=== PATIENT | female | born 1940 | race Caucasian/White ===

== ENCOUNTER 2016-05-30 09:54 | Emergency (ER) | payer MEDICARE ==
[2016-05-30] MEDS ORDERED: Cephalexin CAP* 500 MG PO ONE (11:51)
[2016-05-30] MEDS ORDERED: Sulfamethox/Trimethoprim DS 800/160* TAB PO ONE (11:51)
[2016-05-30] MEDS ORDERED: HYDROcodone/ACETAMIN 5-325 MG* 1 TAB PO ONE (11:51)
[2016-05-30 12:15] VITALS: BP 129/95
--- NOTE | 2016-06-27 10:37 | ED ---
Kennedy York Matthew, scribed for Aj Hyde MD on 05/30/16 at 1136 . Skin Complaint - HPI Summary HPI Summary: A 75 y/o female presents to the ED with erythema over the left hand since this morning, which streaks up the forearm. The pain is rated 8/10 in severity currently. She has had pain for a couple of days without streaking. The patient may have been scratched by a puppy otherwise she has no known cause. She denies fever, itchiness, diaphoresis, and chills. No Hx of diabetes. No recent fall. She took Tramadol this morning without relieve. - History of Current Complaint Chief Complaint: EDExtremityUpper Time Seen by Provider: 05/30/16 11:30 Stated Complaint: ARM PAIN Hx Obtained From: Patient Onset/Duration: Started Hours Ago, Atraumatic, Still Present Skin Exposure Onset/Duration: Hours Ago Timing: Constant Onset Severity: Moderate Current Severity: Moderate Pain Intensity: 8 Pain Scale Used: 0-10 Numeric Skin Location: Arm - left forearm Character: Pain, Redness Aggravating Symptom(s): Touch Alleviating Symptom(s): Nothing Associated Signs & Symptoms: Tenderness, Red Streaks - Allergy/Home Medications Allergies/Adverse Reactions: Allergies Allergy/AdvReac Type Severity Reaction Status Date / Time Amiodarone Allergy Nausea And Verified 05/30/16 11:57 Vomiting Aspirin Allergy GI Upset Verified 05/30/16 11:57 [From Talwin Compound] Latex Allergy Rash Verified 05/30/16 11:57 Pentazocine Allergy GI Upset Verified 05/30/16 11:57 [From Talwin Compound] Sotalol Allergy Nausea Verified 05/30/16 11:57 Zolpidem [From Ambien] Allergy Anxiety Verified 05/30/16 11:57 PMH/Surg Hx/FS Hx/Imm Hx Endocrine/Hematology History: Denies: Hx Diabetes Cardiovascular History: Reports: Hx Hypertension, Hx Pacemaker/ICD Respiratory History: Reports: Hx Chronic Obstructive Pulmonary Disease (COPD) - Surgical History Surgery Procedure, Year, and Place: Right Knee Replacement Infectious Disease History: Denies: Traveled Outside the [place] in Last 30 Days - Family History Known Family History: Positive: Hypertension Negative: Diabetes - Social History Alcohol Use: Rare Hx Substance Use: No Substance Use Type: Reports: None Hx Tobacco Use: No Smoking Status (MU): Never Smoked Tobacco Review of Systems Constitutional: Negative Negative: Fever, Chills Eyes: Negative Negative: Erythema ENT: Negative Negative: Sore Throat Cardiovascular: Negative Negative: Chest Pain Respiratory: Negative Negative: Shortness Of Breath, Cough Gastrointestinal: Negative Negative: Abdominal Pain, Vomiting, Diarrhea, Nausea Genitourinary: Negative Negative: dysuria, hematuria Musculoskeletal: Negative Negative: Myalgia, Edema Skin: Other - Erythema over the left forearm, which streaks up the arm Neurological: Negative Negative: Headache Psychological: Normal All Other Systems Reviewed And Are Negative: Yes Physical Exam Triage Information Reviewed: Yes Vital Signs On Initial Exam: Initial Vitals Temp Pulse Resp BP Pulse Ox 99.5 F 86 18 129/95 97 05/30/16 09:57 05/30/16 09:57 05/30/16 09:57 05/30/16 09:57 05/30/16 09:57 Vital Signs Reviewed: Yes Appearance: Positive: Well-Appearing, No Pain Distress Skin: Positive: Other - excoriation of the skin on the left hand, tenderness over the left hand Head/Face: Positive: Other - Normocephalic; Atraumatic Eyes: Positive: Conjunctiva Clear Dental: Negative: Cervical Lymphadenopathy Neck: Positive: Other: - Full ROM; No JVD Respiratory/Lung Sounds: Positive: Other - Normal Effort; No respiratory distress. Negative: Rales, Stridor, Tracheal Deviation, Wheezes Cardiovascular: Positive: RRR, Other - Rhythm regular, rate normal, Heart sounds normal; Intact distal pulses; The pedal pulses are 2+ and symmetric. Radial pulses are 2+ and symmetric. Negative: Murmur Abdomen Description: Positive: Nontender, Soft, Other: - No Rebound. Negative: Distended, Guarding Bowel Sounds: Positive: Present Musculoskeletal: Negative: Edema Left, Edema Right Neurological: Positive: Alert, Oriented to Person Place, Time Psychiatric: Positive: Affect/Mood Appropriate Diagnostics - Vital Signs Vital Signs Temp Pulse Resp BP Pulse Ox 05/30/16 10:57 98.6 F 69 20 156/88 98 05/30/16 09:57 99.5 F 86 18 129/95 97 - Laboratory Lab Statement: Any lab studies that have been ordered have been reviewed, and results considered in the medical decision making process. Course/Dx - Course Assessment/Plan: A 75 y/o female presents to the ED with erythema over the left hand since this morning, which streaks up the forearm. The pain is rated 8/10 in severity currently. The patient will be sent home on Keflex, Bactrim, and hydrocodone. She was instructed to follow-up at the [facility] in 2 days for a re-check. - Diagnoses Provider Diagnoses: Cellulitis of hand, left, Lymphangitis Discharge - Discharge Plan Condition: Stable Disposition: HOME Prescriptions: Cephalexin CAP* [Keflex CAP*] 500 mg PO QID #40 cap HYDROcodone/ACETAMIN 5-325 MG* [[place] 5-325 TAB*] 1 tab PO Q6H PRN #8 tab MDD 4 PRN Reason: Pain Scale 6-10 Sulfamethox/Trimethoprim DS* [Bactrim DS 800/160 TAB*] 1 tab PO BID #14 tab Patient Education Materials: Cephalexin (By mouth), Sulfamethoxazole/ Trimethoprim (By mouth), Oxycodone/Acetaminophen (By mouth), Cellulitis (ED), Lymphangitis (ED) Additional Instructions: Please follow-up with urgent care in [place] in 2 days. The documentation as recorded by the Kennedy morales Matthew accurately reflects the service I personally performed and the decisions made by , Aj Hyde MD.
== END 2016-05-30 12:38 | disposition home or self-care (01) ==
LOC: ED 09:54
DX: L03.114 Cellulitis of left upper limb (principal); I89.1 Lymphangitis
CPT/HCPCS: 99282; A9270-GY